=== PATIENT | male | born 1950 | race Caucasian/White ===

== ENCOUNTER → 2021-03-29 | Outpatient (CLI) | payer MEDICARE ==
--- NOTE | 2021-03-29 08:10 | RAD ---
EXAM: Abdomen sonogram. HISTORY: Pain. TECHNIQUE: Sonographic imaging of the abdomen was performed. COMPARISON: None. FINDINGS: The liver is normal in size. No focal hepatic lesion is seen. The gallbladder is unremarkab le. The common bile duct is normal in caliber. The kidneys and spleen are unremarkable. The pancreas, aorta and inferior vena cava are partially obscured due to bowel gas. IMPRESSION: No acute sonographic finding. Electronically signed by: Emily Snow MD (03/29/2021 8:08 AM) [id number]
== END ==
LOC: US 06:39
PROVIDERS: ATTEND Family Medicine
DX: R10.84 Generalized abdominal pain (principal)
CPT/HCPCS: 76700